=== PATIENT | female | born 1970 | race Caucasian/White ===

== ENCOUNTER 2024-08-17 14:26 | Emergency (ER) | payer BC, SELFPAY ==
[2024-08-17 14:32] VITALS: BP 143/55; PULSE 65; RESP 16; TEMP 36.4; O2SAT 98
--- NOTE | 2024-08-17 14:43 | ED.WOUNDLAC ---
HPI - Wound/Laceration General Chief Complaint: Wound/Laceration Stated Complaint: lac on left middle finger Time Seen by Provider: 08/17/24 14:43 Source: patient Mode of arrival: ambulatory Limitations: no limitations History of Present Illness HPI narrative: 53 yo F presents with skin avulsion to L middle finger. Was seen in ER two days ago and had surgicel placed. Pt takes eliquis. Was afraid to remove surgicel herself due to possible bleeding. Pt was using a vegetable chopper and stuck her hand into the chopper while it was spinning. all systems reviewed and negative except as noted above. Related Data Home Medications Medication Instructions Recorded Confirmed amitriptyline 50 mg tablet mg 08/17/24 apixaban 5 mg tablet (Eliquis) mg 08/17/24 aspirin 81 mg capsule mg 08/17/24 atorvastatin 80 mg tablet mg 08/17/24 gabapentin 300 mg capsule mg 08/17/24 lisinopril 40 mg tablet mg 08/17/24 metoprolol succinate 25 mg mg PO 08/17/24 tablet,extended release 24 hr ubrogepant 100 mg tablet (Ubrelvy) mg 08/17/24 Allergies Allergy/AdvReac Type Severity Reaction Status Date / Time No Known Allergies Allergy Verified 08/17/24 14:35 Review of Systems Review of Systems: CONSTITUTIONAL: Denies fever, chills, or sweats. EYES: Denies visual changes, redness, or discharge. ENT: Denies rhinorrhea, congestion, sore throat, or otalgia. CARDIOVASCULAR: Denies chest pain, palpitations, or edema. RESPIRATORY: Denies cough or dyspnea. GASTROINTESTINAL: Denies abdominal pain, nausea, vomiting, or diarrhea. GENITOURINARY: Denies dysuria or hematuria. SKIN: Reports skin avulsion to left middle finger. Surgicel placed at ER. MUSCULOSKELETAL: Denies back pain, joint pain, or myalgia. NEUROLOGIC: Denies headache, numbness, or weakness. PSYCHIATRIC: Denies anxiety or depression. All other systems reviewed are negative, except as documented in HPI. PMFSH Comments At time of signature, agree with nursing past medical, surgical, social and family history. There is no relevant family history pertinent to the presenting complaint. Exam Narrative: GENERAL: This is a well-nourished, well-developed patient, in no apparent distress. HEAD: normocephalic, atraumatic. EYES: PERRL. Sclera clear/white. Vision is grossly intact. EARS: External ears normal NOSE: External nose normal NECK: Neck supple, non-tender without lymphadenopathy, masses or thyromegaly. CARDIOVASCULAR: Regular rate and rhythm without murmurs, gallops, or rubs. RESPIRATORY: Clear to auscultation. Breath sounds equal bilaterally. No wheezes, rales, or rhonchi. SKIN: skin avulsion to L middle finger, distal aspect. approx. 1.5 to 2cm diameter. surgicel removed by running under warm water. no bleeding. NEURO: awake, alert, and oriented to person, place and time. There were no obvious focal neurologic abnormalities. EXTREMITIES: No joint tenderness, effusion, or edema noted. Course Course Level of Care: Express Care Visit Vital Signs Vital signs: Vital Signs Temperature 36.4 C 08/17/24 14:32 Pulse Rate 65 08/17/24 14:32 Respiratory Rate 16 08/17/24 14:32 Blood Pressure 143/55 H 08/17/24 14:32 Pulse Oximetry 98 08/17/24 14:32 Oxygen Delivery Room Air 08/17/24 14:32 Temperature 36.4 C 08/17/24 14:32 Pulse Rate 65 08/17/24 14:32 Respiratory Rate 16 08/17/24 14:32 Blood Pressure 143/55 H 08/17/24 14:32 Pulse Oximetry 98 08/17/24 14:32 Oxygen Delivery Room Air 08/17/24 14:32 Reviewed MDM - Wound/Laceration MDM Narrative Medical decision making narrative: skin avulsion to left middle finger may require skin graft. Referred to plastics for further evaluation. Patient is aware of diagnosis, understands and agrees to treatment plan. Anticipatory guidance given. Patient agrees to follow-up as directed and is aware of reasons to seek care at the emergency department. Portions of this record m
== END 2024-08-17 15:46 | disposition home or self-care (01) ==
PROVIDERS: Emergency Provider Nurse Practitioner Family; PCP Physician Assistant
DX: S61.203A Unspecified open wound of left middle finger without damage to nail, initial encounter (principal); W27.8XXA Contact with other nonpowered hand tool, initial encounter; I48.91 Unspecified atrial fibrillation; I20.9 Angina pectoris, unspecified; Z86.73 Personal history of transient ischemic attack (TIA), and cerebral infarction without residual deficits
CPT/HCPCS: 99212; G0463